=== PATIENT | female | born 2000 | race Caucasian/White ===

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

== ENCOUNTER → 2018-09-15 | Outpatient (REF) | payer OTHER | LOC: M SFHCLERA 16:37 | PROVIDERS: ATTEND Physician Assistant | DX: R50.9 Fever, unspecified (principal) ==